=== PATIENT | male | born 1995 | race Asian ===

== ENCOUNTER 2017-05-27 10:13 | Emergency (ER) | payer OTHER ==
[~2017-05-27] VITALS: Ht 177.8 cm; Wt 68.0 kg
[2017-05-27 10:32] VITALS: BP 131/80
[2017-05-27 11:55] VITALS: BP 120/71
== END 2017-05-27 11:55 | disposition home or self-care (01) ==
LOC: MED 10:13
DX: S61.411A Laceration without foreign body of right hand, initial encounter (principal); W18.30XA Fall on same level, unspecified, initial encounter; Y93.89 Activity, other specified; Y92.89 Other specified places as the place of occurrence of the external cause; Y99.8 Other external cause status

== ENCOUNTER 2017-07-26 15:46 | Emergency (ER) | payer OTHER ==
[~2017-07-26] VITALS: Ht 188 cm; Wt 74.4 kg
[2017-07-26 16:26] VITALS: BP 139/76
--- NOTE | 2017-07-26 16:42 | NUR ---
bed 08*
--- NOTE | 2017-07-26 16:42 | NUR ---
Patient ambulated to bed 03.
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
[2017-07-26 18:28] VITALS: BP 121/61
== END 2017-07-26 18:30 | disposition home or self-care (01) ==
LOC: MED 15:46
DX: M79.641 Pain in right hand (principal); F17.210 Nicotine dependence, cigarettes, uncomplicated
CPT/HCPCS: 73130; 99284; Q0092

== ENCOUNTER 2020-07-20 17:08 | Emergency (ER) | payer OTHER ==
[~2020-07-20] VITALS: Ht 180.3 cm; Wt 70.3 kg
[2020-07-20 17:13] VITALS: BP_SYST 143; BP_SYST 85; BP_DIAS 85
--- NOTE | 2020-07-20 17:17 | NUR ---
Patient to bed 11. RN evaluating patient at bedside.
--- NOTE | 2020-07-20 17:37 | NUR ---
PT DANIEL SWABBED AND SPECIMEN WALKED TO LAB
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
[2020-07-20 17:48] VITALS: BP 143/85
--- NOTE | 2020-07-20 17:48 | NUR ---
Patient discharged with v/s stable. Written and verbal after care instructions given and explained. Patient verbalized understanding. Ambulatory with steady gait. All questions addressed prior to discharge. Advised to follow up with PMD.
== END 2020-07-20 17:48 | disposition home or self-care (01) ==
LOC: MED 17:08
DX: S61.211A Laceration without foreign body of left index finger without damage to nail, initial encounter (principal); Z20.828 Contact with and (suspected) exposure to other viral communicable diseases; W26.0XXA Contact with knife, initial encounter; Y93.89 Activity, other specified; Y92.89 Other specified places as the place of occurrence of the external cause; Y99.8 Other external cause status
CPT/HCPCS: 12001; 99283; U0003

== ENCOUNTER 2020-09-28 09:49 | Emergency (ER) | payer OTHER ==
[~2020-09-28] VITALS: Ht 177.8 cm; Wt 75.7 kg
[2020-09-28 09:56] VITALS: BP 138/86
[2020-09-28 10:36] VITALS: BP 138/86
== END 2020-09-28 10:37 | disposition home or self-care (01) ==
LOC: MED 09:49
DX: S90.02XA Contusion of left ankle, initial encounter (principal); W22.01XA Walked into wall, initial encounter; Y93.89 Activity, other specified; Y92.89 Other specified places as the place of occurrence of the external cause; Y99.8 Other external cause status
CPT/HCPCS: 73610; 99283

== ENCOUNTER 2022-03-27 19:44 | Emergency (ER) | payer OTHER ==
[~2022-03-27] VITALS: Ht 177.8 cm; Wt 74.8 kg
[2022-03-27 20:08] VITALS: BP 167/84
--- NOTE | 2022-03-27 20:13 | NUR ---
TO LOBBY FOLLOWING TRIAGE
[2022-03-27 22:38] LABS: BASOPHILS % (AUTO) 0.4 % (0.0-2.0); EOSINOPHILS # (AUTO) 0.1 K/uL (0-0.4); EOSINOPHILS % (AUTO) 0.6 % (0.0-4.0); HEMATOCRIT 46.9 % (36-52); HEMOGLOBIN 15.3 g/dL (12.0-18.0); LYMPHOCYTES # (AUTO) 2.4 K/uL (2.0-11.5); LYMPHOCYTES % (AUTO) 27.7 % (20.5-51.1); MEAN CORPUSCULAR HEMOGLOBIN 26 pg (27-31); MEAN CORPUSCULAR HGB CONC 33 g/dL (33-37); MEAN CORPUSCULAR VOLUME 80.4 fL (80-94); MONOCYTES # (AUTO) 0.4 K/uL (0.8-1.0); MONOCYTES % (AUTO) 4.7 % (1.7-9.3); NEUTROPHILS # (AUTO) 5.9 K/uL (1.8-7.7); NEUTROPHILS % (AUTO) 66.6 % (42.2-75.2); PLATELET COUNT (AUTO) 313 K/uL (140-450); RED BLOOD CELL COUNT(AUTO) 5.84 MIL/uL (4.20-6.10); RED CELL DISTRIBUTION WIDTH 13.4 % (11.6-13.7); WHITE BLOOD COUNT (AUTO) 8.8 K/uL (4.8-10.8)
[2022-03-27 22:44] LABS: ANION GAP 10.6 (8-16); CARBON DIOXIDE 28.3 mmol/L (21-32); CREATININE 0.9 mg/dL (0.6-1.3); POTASSIUM 3.9 mmol/L (3.5-5.1)
[2022-03-27 23:15] VITALS: BP 167/84
== END 2022-03-27 23:15 | disposition home or self-care (01) ==
LOC: MED 19:44
DX: I10 Essential (primary) hypertension (principal); F17.210 Nicotine dependence, cigarettes, uncomplicated; Z71.6 Tobacco abuse counseling
CPT/HCPCS: 36415; 80048; 85025; 99283

== ENCOUNTER 2023-01-12 00:30 | Emergency (ER) | payer OTHER ==
[~2023-01-12] VITALS: Ht 177.8 cm; Wt 81.6 kg
[2023-01-12 00:39] VITALS: BP 135/91
--- NOTE | 2023-01-12 01:10 | NUR ---
Note lorelei in EDM - 01/12/23 at 0326 by CARLOS Patient discharged with v/s stable. Written and verbal after care instructions given and explained. Patient verbalized understanding. Ambulatory with steady gait. All questions addressed prior to discharge. Advised to follow up with PMD.
[2023-01-12] MEDS ORDERED: FLONAS NS (02:01)
[2023-01-12] MEDS ORDERED: METH4TAB1 PO (02:01)
[2023-01-12] MEDS ORDERED: methylPREDNISolone SS 125 MG in WATER STERILE 2 ML IM ONE (02:10)
[2023-01-12] MEDS ORDERED: methylPREDNISolone SS 125 MG/2 ML VIAL ONE (02:12)
== END 2023-01-12 02:20 | disposition home or self-care (01) ==
LOC: MED 00:30
DX: J30.9 Allergic rhinitis, unspecified (principal); Z79.899 Other long term (current) drug therapy
CPT/HCPCS: 96372; 99283; J2930

== ENCOUNTER 2023-02-09 22:18 | Emergency (ER) | payer OTHER ==
[~2023-02-09] VITALS: Ht 177.8 cm; Wt 80.7 kg
[~2023-02-09 22:18] MED LIST: FLONAS NS; METH4TAB1 PO
[2023-02-09 22:42] VITALS: BP 131/98
--- NOTE | 2023-02-09 22:50 | NUR ---
SEEN AND EXAMINED BY NORA
[2023-02-10] MEDS ORDERED: NAPR-54 PO (00:01)
[2023-02-10 00:05] VITALS: BP 120/82
--- NOTE | 2023-02-10 00:05 | NUR ---
Patient discharged with v/s stable. Written and verbal after care instructions given and explained BY SONIDO Patient alert, oriented and verbalized understanding of instructions. Ambulatory with steady gait. All questions addressed prior to discharge. ID band removed. Patient advised to follow up with PMD. Rx of NAPROSYN given. Patient educated on indication of medication including possible reaction and side effects. Opportunity to ask questions provided and answered.
== END 2023-02-10 00:05 | disposition home or self-care (01) ==
LOC: MED 22:18
DX: M75.21 Bicipital tendinitis, right shoulder (principal); Z79.899 Other long term (current) drug therapy
CPT/HCPCS: 73060; 99283